=== PATIENT | female | born 2005 | race Asian ===

== ENCOUNTER 2024-04-23 11:53 | Emergency (ER) | payer SELFPAY ==
--- NOTE | ~2024-04-23 | XR_ITS ---
EXAMINATION: XR KNEE, LEFT CLINICAL INFORMATION: Pain COMPARISON: None available. TECHNIQUE: Four views of the left knee. FINDINGS: No acute visible fracture or dislocation. Joint spaces and alignment are maintained. Small knee joint effusion. Soft tissues are unremarkable. XR/XR knee LT 4V IMPRESSION: 1. No acute visible fracture or dislocation. 2. Small knee joint effusion. Electronically signed by: Amarilys Kinsey MD 04/23/2024 01:04 PM EDT
--- NOTE | ~2024-04-23 | US_ITS ---
EXAM: Left popliteal ultrasound INDICATION: Posterior left knee pain TECHNIQUE: Real-time ultrasound was used to scan the left popliteal fossa. Permanent documentation images obtained. Color Doppler and waveform analysis of the popliteal vein performed. FINDINGS: Patent popliteal vein without internal echogenicity to suggest thrombus. No fluid collections to indicate Kiran's cyst. US/US extremity nonvascular IMPRESSION: Unremarkable left popliteal ultrasound. Electronically signed by: Dory Woodson MD 04/23/2024 01:43 PM EDT
[2024-04-23 12:13] VITALS: BP 131/84; PULSE 87; RESP 16; TEMP 37.2; O2SAT 98; BMI 27.0
--- NOTE | 2024-04-23 12:13 | ED_ITS ---
HPI - Extremity Injury (Lower) General Chief Complaint: Extremity Injury, Lower Stated Complaint: L leg pain Time Seen by Provider: 04/23/24 12:33 Source: patient Mode of arrival: ambulatory Limitations: no limitations History of Present Illness ED Provider: JUAN PABLO CARVALHO PA-C HPI Narrative: 18 year old female, [employer] student, presenting to the ED today for evaluationof left knee pain x 2 weeks. Admits pain has been worsening with walking more around campus. Denies injury/ trauma. Admits knee pain is exacerbated with ambulation. States she cannot sleep at night due to the pain. She has not taken any OTC pain meds for this at home. She is not involved in any sports. Denies recent travel or long car rides. Denies fever, chills, numbness/tingling/weakness of the RLE. No other joint pain. No known tick or insect bites. Related Data Previous Rx's ?Medication ?Instructions ?Recorded naproxen 500 mg tablet 500 mg PO Q8-12H PRN pain (scale 04/23/24 score 1-3) #20 tabs prednisone 20 mg tablet 40 mg (2 x 20 mg) PO DAILY 5 days 04/23/24 #10 tabs Allergies Allergy/AdvReac Type Severity Reaction Status Date / Time No Known Allergies Allergy Verified 04/23/24 12:14 Review of Systems Review of Systems: Constitutional: No fever, chills, fatigue, night sweats, weight changes ENT/Mouth: No ear pain, hearing loss, nasal congestion, sinus pain, rhinorrhea, sore throat Eyes: No eye pain, swelling, redness, vision changes, discharge Cardio: No chest pain, palpitations, ESCOBAR, orthopnea, peripheral edema Pulm: No SOB, cough, sputum, wheezing, dyspnea, hemoptysis GI: No nausea, vomiting, hematemesis, abdominal pain, diarrhea, constipation, hematochezia, melena : No irregular bleeding, dysuria, frequency, urgency, hesitancy, hematuria, flank pain, urinary flow changes, urinary incontinence or retention MSK: No back pain, neck pain, joint pain, myalgias, +left knee pain Skin: No lesions, rashes Neuro: No weakness, numbness, paresthesias, LOC, dizziness, headache Psych: No anxiety/panic, depression, SI/HI, AH/VH All other systems reviewed and are negative. [facility] Past Medical History Attestation statement: The following information was validated with the patient. Source: old records reviewed and nursing notes reviewed Social History Social History Advance Directives: No Advance Directives Information Provided: Yes Physical Exam Vital Signs: Vital Signs: Last Vital Signs Temp 98.9 F 04/23/24 12:13 Pulse 87 04/23/24 12:13 Resp 16 04/23/24 12:13 BP 131/84 04/23/24 12:13 Pulse Ox 98 04/23/24 12:13 O2 Del Method Room Air 04/23/24 12:13 BMI result Body Mass Index 27.0 Vital signs stable, afebrile General: Well appearing, in no acute distress. Skin: Warm, dry, intact. No rashes or lesions. Head: Normocephalic, atraumatic. Neck: Supple without LAD. FROM. Trachea midline.? Cardiac: Chest wall symmetric. RRR. No MRG. No JVD. Lungs: Normal respiratory effort without accessory muscle use. CTA bilaterally. No rales, rhonchi, or wheezes.? Back: No midline spinous or paraspinal tenderness. No step off deformity. Ext: +minimal swelling noted to anterior left knee, slightly ttp. no palpable deformity. no crepitus/ warmth. FROM intact to L knee. Popliteal, DP/PT pulse intact. Neuro: AOx3. Normal speech. Strength 5/5 intact throughout. Sensation intact to light touch. NV intact distally. Reflexes 2+ bilaterally. Ambulating with steady gait. Psych: Appropriate mood and affect. Responds appropriately to questions. Course Course Course Narrative: This is a Rapid Medical Examination (RME) performed by Franc Barros PA-C in triage. Full HPI, ROS, assessment and treatment plan per primary provider in the Main ED. 18 y/o female [employer] student who presents to the ER for evaluation of worsening left knee pain after walking more and more at school. no known injury. pain worse w/ ambulation and now at night, cant sleep. has nto taken any medications for the pain. very slight limp into triage. Plan: XR knee, joint exam Reevaluation(s) Reevaluation #1: 1403 -- on re-evaluation, she reports improvement in pain w/ toradol. ultrasound LLE does not demonstrate popliteal cyst. XR left knee showing small knee joint effusion without fracture. donavon wrap applied for compression. crutches provided to help with ambulation. educated on RICE therapy. will send naproxen and prednisone to pharmacy. advised to follow up with pcp and/or ortho if symptoms continue. Patient has remained stable throughout ED visit today. Discussed worrisome signs and symptoms and when to return to the ED. All questions answered at this time. Patient is agreeable with disposition and stable for discharge. Medications Administered Discontinued Medications Generic Name Dose Route Start Last Admin Trade Name Freq PRN Reason Stop Dose Admin Ketorolac Tromethamine 30 mg 04/23/24 12:58 04/23/24 13:03 Ketorolac Tromethamine 30 Mg/Ml Vial IM 04/23/24 12:59 30 mg ONCE ONE Administration Medical Decision Making Medical Decision Making MDM Narrative: 18 year old female, [employer] student, presenting to the ED today for evaluationof left knee pain x 2 weeks. Vital signs stable. She is nontoxic a ppearing in no acute distress. On exam, minimal swelling noted to anterior left knee, slightly ttp. no palpable deformity. no crepitus/ warmth. FROM intact to L knee. Popliteal, DP/PT pulse intact. Ambulating with slightly limping gait. Differential diagnosis includes bursitis, arthritis, fracture, popliteal cyst, ligament/ tendon injury, tendinitis. Unlikely dislocation, DVT, lyme arthritis, septic joint, NV compromise, threat to limb, compartment syndrome. Plan for xr, extremity US, pain control, and re-evaluation. Differential Diagnosis Differential Diagnoses: The differential diagnosis associated with the presentation includes As above Admission/Observation Not indicated Independent Interpretation I performed an independent interpretation of an: Plain X-Ray and Ultrasound Interpretation: X-ray left knee without acute fracture, small joint effusion noted, agree with radiologist's interpretation. Ultrasound left lower extremity without noted popliteal cyst, agree with radiologist's interpretation. Radiology Impression Discussion of test interpretation with radiology: I have reviewed the radiolog ist's reading. Radiologist Impression: cEXAMINATION: XR KNEE, LEFT CLINICAL INFORMATION: Pain COMPARISON: None available. TECHNIQUE: Four views of the left knee. FINDINGS: No acute visible fracture or dislocation. Joint spaces and alignment are maintained. Small knee joint effusion. Soft tissues are unremarkable. XR/XR knee LT 4V IMPRESSION: 1. No acute visible fracture or dislocation. 2. Small knee joint effusion. Electronically signed by: Amarilys Kinsey MD 04/23/2024 01:04 PM EDT EXAM: Left popliteal ultrasound INDICATION: Posterior left knee pain TECHNIQUE: Real-time ultrasound was used to scan the left popliteal fossa. Permanent documentation images obtained. Color Doppler and waveform analysis of the popliteal vein performed. FINDINGS: Patent popliteal vein without internal echogenicity to suggest thrombus. No fluid collections to indicate Kiran's cyst. US/US extremity nonvascular IMPRESSION: Unremarkable left popliteal ultrasound. Electronically signed by: Dory Woodson MD 04/23/2024 01:43 PM EDT External Record Review External record reviewed: Inpatient record Prescription Management I considered prescription management with: Pain Medication (naproxen) and Other (prednisone) Social Determinants Patient?s care significantly limited by Social Determinants of Health including: Other Social Determinant of Health Procedures Orthopedic Splinting/Casting Injury #1: Side: left Lower Extremity Injury Location: knee Lower Extremity Immobilizer: Donavon wrap Other Orthopedic Equipment: crutches Critical Care Time Critical Care Time Critical Care Time: No Discharge Plan Discharge Clinical Impression: Effusion of left knee Patient Disposition: Home, Self-Care Instructions: Swollen Knee Joint (ED) Additional Instructions: You were evaluated in [facility] ED today for left knee pain. The ultrasound of your left leg was normal. The x-ray of your left knee shows small effusion (swelling) of the left knee without noted fracture. An Donavon bandage was applied today for compression to help with swelling. Continue rice therapy at home - rest, ice, compress, elevate. Naproxen as an anti-inflammatory pain medication that has been sent to your pharmacy for you to take as needed for pain. Do not take this with other NSAIDs such as Motrin as this can cause increased risk of GI bleeding. Prednisone is a steroid that has been sent to your pharmacy for you to take over the next 5 days for inflammation. You have also been provided with crutches to help ambulate. You may bear weight on your left knee as tolerated. If symptoms persist, please follow up with your PCP and or orthopedic doctor. If you do not have one, a referral has been provided to you. You may call them to establish care. They will not call you. Return with new or worsening symptoms. In the case of an emergency call 911. Prescriptions: New naproxen 500 mg tablet 500 mg PO Q8-12H PRN (Reason: pain (scale score 1-3)) Qty: 20 0RF prednisone 20 mg tablet 40 mg PO DAILY 5 Days Qty: 10 0RF Referrals: [facility] – [place] [facility], [facility] [Provider Group] [facility] – [place] [facility],Stacie [Provider Group] [facility] – [place] [facility] [Provider Group] Print Language: Kazakh
[2024-04-23] MEDS: Ketorolac Tromethamine 30 MG/ML VIAL IM (13:03)
[2024-04-23 14:18] VITALS: BP 103/68; PULSE 75; RESP 16; TEMP 36.2; O2SAT 99
[2024-04-23 14:29] VITALS: BP 103/68; PULSE 75; RESP 16; TEMP 36.2; O2SAT 99
== END 2024-04-23 14:30 | disposition home or self-care (01) ==
PROVIDERS: Emergency Provider Emergency Medicine
DX: M25.462 Effusion, left knee (principal); M25.562 Pain in left knee
CPT/HCPCS: 73564; 76882; 96372; 99283; 99284; J1885